=== PATIENT | female | born 1960 | race Caucasian/White ===

== ENCOUNTER 2016-10-29 22:27 | Emergency (ER) | payer OTHER ==
[~2016-10-29] VITALS: Ht 172.7 cm; Wt 47.6 kg
[~2016-10-29 22:27] MED LIST: AMITRIPTYLINE H25 M2 GT; AMITRIPTYLINE H25 M2 PO; ASA81BEC; ATORVASTATIN CA40 MG PO; AUGMENTIN 875875 MG PO; BACLOFEN20 MG PO; BUMETANIDE0.5 MG PO; CALCIUM 600 +1 EAC8; CALICUM PO; CENTRUM SILVER1 EAC2 PO; COLACE100 MG PO; FLOVENT DISKUS50 MCG IH; FOLIC ACID1 MG PO; FOSAMAX 70 MG T70 MG PO; GRALISE300 MG PO; IBUPROFEN 800800 M1; KEFLEX500 MG PO; MACRODANTIN100 MG PO; METHOCARBAMOL750 MG PO; METHOTREXATE 22.5 M1 PO; MIDODRINE HCL 55 M1 PO; MIRALAX17 G1 PO; MULTIVITAMIN PO; NEURONTIN600 MG PO; NEXIUM40 MG PO; OXYBUTYNIN 5 MG5 M2 PO; OXYCONTIN20 M1 PO; PERCOCET 10-321 EAC1 PO; PREDNISONE 10 M10 M1 PO; PREDNISONE 5 MG5 MG PO; SERTRALINE HCL50 MG PO; SINGULAIR 10 MG10 M1 PO; TRAMADOL 50 MG50 MG PO; VALIUM5 MG PO; VENTOLIN HFA 1818 GM INH; XANAX 0.5 MG0.5 MG PO; XANAX1 MG PO
== END 2016-10-30 00:20 | disposition home or self-care (01) ==
LOC: ER 22:27
DX: S80.12XA Contusion of left lower leg, initial encounter (principal); I95.9 Hypotension, unspecified; M19.90 Unspecified osteoarthritis, unspecified site; F41.9 Anxiety disorder, unspecified; K21.9 Gastro-esophageal reflux disease without esophagitis; J44.9 Chronic obstructive pulmonary disease, unspecified; J45.909 Unspecified asthma, uncomplicated; Z91.81 History of falling; Z88.2 Allergy status to sulfonamides; Z88.5 Allergy status to narcotic agent; Z88.8 Allergy status to other drugs, medicaments and biological substances; Z87.891 Personal history of nicotine dependence; W01.0XXA Fall on same level from slipping, tripping and stumbling without subsequent striking against object, initial encounter; Y93.89 Activity, other specified; Y92.89 Other specified places as the place of occurrence of the external cause; Y99.8 Other external cause status

== ENCOUNTER 2016-12-18 12:04 | Emergency (ER) | payer OTHER ==
[~2016-12-18] VITALS: Ht 172.7 cm; Wt 46.3 kg
[2016-12-18 13:15] LABS: HEMATOCRIT 38.2 % (37.0-47.0); HEMOGLOBIN 12.8 gm/dL (12.0-15.0); MCH 32.2 pg (26.0-34.0); MCHC 33.5 g/dL (28.0-37.0); MCV 96.2 fL (80.0-100.0); PLATELET COUNT 339 thou/uL (150-400); RBC 3.97 mil/uL (4.20-5.00); RDW 13.2 % (10.5-14.5); WBC 15.3 thou/uL (4.0-11.0)
[2016-12-18 13:17] LABS: MANUAL DIFF YES
[2016-12-18 13:26] LABS: URINE BLOOD 3+ (Negative); URINE COLOR YELLOW; URINE GLUCOSE-RANDOM* NEGATIVE (Negative); URINE KETONES NEGATIVE (Negative); URINE NITRITE POSITIVE (Negative); URINE PROTEIN (DIPSTICK) 3+ (Negative)
[2016-12-18 13:26] LABS: CALCIUM 9.3 mg/dL (8.5-10.1); CREATININE 0.9 mg/dL (0.6-1.0); POTASSIUM 3.8 mmol/L (3.5-5.1)
[2016-12-18 13:29] LABS: URINE BILIRUBIN NEGATIVE (Negative)
[2016-12-18 13:33] LABS: CASTS None Seen /LPF (None Seen); CRYSTALS None Seen /LPF (None Seen); SQUAMOUS 0-3 Few /LPF (0-3); URINE RBC >20 Many /HPF (0-2); URINE WBC >25 Many /HPF (0-5)
[2016-12-18 13:49] LABS: TOTAL CELL COUNT 100
[2016-12-18] MEDS ORDERED: KEFLEX500 MG PO (14:15)
== END 2016-12-18 14:30 | disposition home or self-care (01) ==
LOC: ER 12:04
PROVIDERS: Emergency Medicine
DX: N39.0 Urinary tract infection, site not specified (principal); K21.9 Gastro-esophageal reflux disease without esophagitis; J44.9 Chronic obstructive pulmonary disease, unspecified; J45.909 Unspecified asthma, uncomplicated; F41.9 Anxiety disorder, unspecified; M19.90 Unspecified osteoarthritis, unspecified site; Z87.19 Personal history of other diseases of the digestive system; Z91.81 History of falling; Z87.891 Personal history of nicotine dependence; Z88.5 Allergy status to narcotic agent; Z88.2 Allergy status to sulfonamides; Z88.1 Allergy status to other antibiotic agents; Z88.8 Allergy status to other drugs, medicaments and biological substances

== ENCOUNTER 2016-12-30 12:15 | Inpatient (IN) | payer OTHER ==
[~2016-12-30] VITALS: Ht 172.7 cm; Wt 54.4 kg
--- NOTE | ~2016-12-30 | EKG ---
[address] [address] ELECTROCARDIOGRAM REPORT Name: KINGS JENKINS Room #: 208-P ADM IN M.R.#: [id number] Admission: 12/30/16 Attend Phys: Ramsey Maldonado MD Discharge: Date of : 60 Report #: [id number] THIS REPORT FOR: //name// [facility] ED Test Date: 2016-12-30 Test Time: 13:39:44 Pat Name: KINGS JENKINS Department: Room: 208 Gender: F Telephone Solicitor Supervisor: Sahara BURLESON : 1960 Requested By: Shahbaz Villalta Order Number: [id number] MD: Dominik Kennedy Measurements Intervals [place] Rate: 92 P: 3 NC: 134 QRS: 68 QRSD: 91 T: 70 QT: 389 QTc: 482 Interpretive Statements Sinus rhythm No significant abnormality Compared to ECG 03/25/2016 07:15:47 No significant change was found Electronically Signed On 12-31-2016 8:09:02 CDT by Dominik Kennedy [email or web address] <ELECTRONICALLY SIGNED> By: Dominik Kennedy MD, [facility] 12/31/16 0809 D: [id number] Dominik Kennedy MD, FACC /EPI
[2016-12-30 12:17] VITALS: BP 85/64
[2016-12-30] MEDS ORDERED: NITROFURANTOIN100 MG PO (12:38)
[2016-12-30] MEDS ORDERED: LEVAQUIN 750 M750 MG PO (12:39)
[2016-12-30 13:51] LABS: ABSOLUTE NEUTROPHILS 7.8 thou/uL (1.4-8.2); BASOPHILS 0.6 % (0.0-2.0); EOSINOPHILS 1.1 % (0.0-3.0); HEMATOCRIT 33.9 % (37.0-47.0); HEMOGLOBIN 11.4 gm/dL (12.0-15.0); LYMPHOCYTES 18.3 % (24.0-44.0); MANUAL DIFF NO; MCH 32.3 pg (26.0-34.0); MCHC 33.7 g/dL (28.0-37.0); MCV 95.7 fL (80.0-100.0); MONOCYTES 9.5 % (1.0-8.0); PLATELET COUNT 315 thou/uL (150-400); POLYS 70.5 % (36.0-66.0); RBC 3.54 mil/uL (4.20-5.00); RDW 13.5 % (10.5-14.5)
[2016-12-30 14:02] LABS: CALCIUM 9.1 mg/dL (8.5-10.1); CREATININE 1.4 mg/dL (0.6-1.0); POTASSIUM 4.9 mmol/L (3.5-5.1)
[2016-12-30 14:13] LABS: TROPONIN-I 0.3 ng/mL (<0.04-0.07)
[2016-12-30 17:33] VITALS: BP 139/78
[2016-12-30 18:25] VITALS: BP 116/77
[2016-12-30 20:35] VITALS: BP 87/57
[2016-12-31 04:13] VITALS: BP 70/42
[2016-12-31 04:24] LABS: HEMATOCRIT 29.9 % (37.0-47.0); HEMOGLOBIN 9.9 gm/dL (12.0-15.0); MCH 32.4 pg (26.0-34.0); MCHC 33.1 g/dL (28.0-37.0); MCV 97.8 fL (80.0-100.0); RBC 3.05 mil/uL (4.20-5.00); RDW 13.3 % (10.5-14.5); WBC 6.8 thou/uL (4.0-11.0)
[2016-12-31 04:52] LABS: CALCIUM 8.4 mg/dL (8.5-10.1); CREATININE 1.2 mg/dL (0.6-1.0); TROPONIN-I 0.09 ng/mL (<0.04-0.07)
[2016-12-31 04:54] LABS: POTASSIUM 3.9 mmol/L (3.5-5.1)
[2016-12-31 08:00] VITALS: BP 137/101
[2016-12-31 11:45] VITALS: BP 138/117
[2016-12-31 15:00] VITALS: BP 109/80
[2016-12-31 19:48] VITALS: BP 152/131
[2017-01-01] VITALS (8 sets, daily range): BP systolic 96–126; BP diastolic 54–74
[2017-01-01 04:40] LABS: CALCIUM 8.7 mg/dL (8.5-10.1)
== END 2017-01-01 13:47 | disposition home health service (06) | DRG 682 ==
LOC: ER 12:15 → EROBS 16:56 → 2N 16:56 → ENTRNSPT 01-01 13:28 → EDTRNSPTSTS 01-01 13:33 → 2N 01-01 13:47
PROVIDERS: Hospitalist; Nurse Practitioner
DX: N17.0 Acute kidney failure with tubular necrosis (principal); E43 Unspecified severe protein-calorie malnutrition; Z68.1 Body mass index [BMI] 19.9 or less, adult; I95.1 Orthostatic hypotension; J44.9 Chronic obstructive pulmonary disease, unspecified; K21.9 Gastro-esophageal reflux disease without esophagitis; J45.909 Unspecified asthma, uncomplicated; M79.7 Fibromyalgia; R40.0 Somnolence; F41.9 Anxiety disorder, unspecified; R53.81 Other malaise; R79.89 Other specified abnormal findings of blood chemistry; G62.9 Polyneuropathy, unspecified; R29.6 Repeated falls; W01.0XXA Fall on same level from slipping, tripping and stumbling without subsequent striking against object, initial encounter; Y93.89 Activity, other specified; Y92.009 Unspecified place in unspecified non-institutional (private) residence as the place of occurrence of the external cause; Y99.8 Other external cause status; Z87.891 Personal history of nicotine dependence; Z88.1 Allergy status to other antibiotic agents; Z88.8 Allergy status to other drugs, medicaments and biological substances; Z88.6 Allergy status to analgesic agent; Z88.2 Allergy status to sulfonamides; Z87.828 Personal history of other (healed) physical injury and trauma; Z87.440 Personal history of urinary (tract) infections; Z79.899 Other long term (current) drug therapy
CPT/HCPCS: 10081